=== PATIENT | female | born 1975 | race Caucasian/White ===

== ENCOUNTER 2025-01-21 08:52 | Emergency (ER) | payer OTHER, SELFPAY ==
[2025-01-21] VITALS (10 sets, daily range): BP systolic 123–185; BP diastolic 63–81; PULSE 81–112; RESP 18; TEMP 36.5; O2SAT 92–100; BMI 38.7
--- NOTE | 2025-01-21 09:10 | ED.ABDPAIN ---
HPI - Abdominal Pain General Chief Complaint: Abdominal Pain Stated Complaint: Pain in right back and stomach. Time Seen by Provider: 01/21/25 08:56 History of Present Illness HPI narrative: 49 yo female with hx of atrial fibrillation s/p ablation in 2023, GERD, HLD, chronic back pain, sarcoidosis, high liver numbers, EtOH use (recent binge drinking), here with R flank pain that started at 3am. It woke her from sleep. It waxes and wanes in intensity. She took some hydrocodone at 6am which did not provide much relief. She has never had this pain before. On ROS reports nausea and vomiting x2. No diarrhea. LBM was yesterday. No dysuria, frequency or hematuria. No history of kidney stones. No chest pain. She is s/p hysterectomy. She is prescribed Eliquis and Diltiazem, gabapentin, duloxetine. Related Data Allergies Allergy/AdvReac Type Severity Reaction Status Date / Time cephalexin Allergy Unknown Verified 01/21/25 09:06 ibuprofen (From Motrin) Allergy Unknown Verified 01/21/25 09:06 Penicillins Allergy Unknown Verified 01/21/25 09:06 Review of Systems Review of Systems Narrative: Pertinent ROS obtained and negative except as stated in HPI Patient History Social History Smoking Status: Never smoker Exam Narrative Exam Narrative: Constitutional: 49-year-old female resting on the bed, eyes are closed, appears uncomfortable Head: NCAT Cardiovascular: RRR, no murmur or rub Pulmonary: CTA bilaterally, no respiratory distress Abdominal: soft, pt does not react with palpation but endorses tenderness in all quadrants, maximally epigastric & right upper quadrant, negative Alves sign, no CVA tenderness Extremities: No LE edema Skin: warm and dry, no diaphoresis Neurological: Alert and oriented x3 Initial Vital Signs Initial Vital Signs: Vital Signs Pulse Rate 81 01/21/25 09:03 Blood Pressure 185/81 H 01/21/25 09:03 Pulse Oximetry 95 01/21/25 09:03 Course Orders Ordered: Discontinued Medications Hydrocodone Bitart/Acetaminophen (Hydrocodone/Acet 5/325 Tablet) 1 tab PO NOW ONE Stop: 01/21/25 12:01 Last Admin: 01/21/25 12:16 Dose: 1 tab Documented By: SBF Diphenhydramine HCl (Diphenhydramine 50 Mg/Ml Vial) 25 mg IV NOW ONE Stop: 01/21/25 09:34 Last Admin: 01/21/25 12:22 Dose: Not Given Documented By: SBF Morphine Sulfate (Morphine 4 Mg/Ml Inj) 4 mg IV Q2H PRN PRN Reason: pain Last Admin: 01/21/25 09:15 Dose: 4 mg Documented By: SBF Ondansetron HCl (Ondansetron 4 Mg/2 Ml Inj) 4 mg IV Q2HR PRN PRN Reason: Nausea And Vomiting Vital Signs Vital signs: Vital Signs - 8 hr 01/21/25 09:03 01/21/25 09:03 01/21/25 09:06 Temperature 97.7 F Pulse Rate 81 84 Respiratory Rate 18 Blood Pressure 185/81 H 185/81 H Pulse Oximetry 95 95 Oxygen Delivery Method Room Air 01/21/25 09:30 01/21/25 09:36 01/21/25 09:36 Temperature Pulse Rate 85 91 H Respiratory Rate Blood Pressure 138/63 Pulse Oximetry 97 98 Oxygen Delivery Method 01/21/25 10:00 01/21/25 10:30 Temperature Pulse Rate 92 H 92 H Respiratory Rate Blood Pressure Pulse Oximetry 95 92 Oxygen Delivery Method MDM - Abdominal Pain Lab Data 01/21/25 09:37 01/21/25 09:37 Labs: Lab Results 01/21/25 01/21/25 Range/Units 09:09 09:37 WBC 11.2 H (4.5-11.0) X10^3/uL RBC 4.96 (4.0-5.2) X10^6/uL Hgb 13.5 (12.0-16.0) g/dL Hct 41.5 (36-46) % MCV 83.8 (80-100) fL MCH 27.3 (26-34) PG MCHC 32.5 (30-36) % RDW 14.0 (11.6-14.8) % Plt Count 290 (150-400) X10^3/uL Neut % (Auto) 91.9 H (50-75) % Lymph % (Auto) 5.3 L (25-40) % [place] % (Auto) 2.2 L (3-14) % Eos % (Auto) 0.1 L (2-4) % Baso % (Auto) 0.5 (0-2) % Neut # (Auto) 85647 H (5863-1596) /uL Lymph # (Auto) 600 L (1695-0644) /uL [place] # (Auto) 200 (0-900) /uL Eos # (Auto) 0 (0-450) /uL Baso # (Auto) 100 (0-100) /uL Sodium 137 (137-145) mmol/L Potassium 4.4 (3.4-5.1) mmol/L Chloride 102 (98-107) mmol/L Carbon Dioxide 26 (22-32) mmol/L BUN 21 H (7-17) mg/dL Creatinine 0.98 (0.52-1.04) mg/dL Estimated GFR > 60 (>60) mL/min BUN/Creatinine Ratio 21.4 (6-22) Glucose 148 H (70-99) mg/dL Calcium 9.0 (8.4-10.2) mg/dL Total Bilirubin 0.3 (0.2-1.3) mg/dL AST 30 (14-36) IU/L ALT 33 (<35) IU/L Alkaline Phosphatase 174 H (38-126) U/L Troponin I < 0.012 (0.01-0.034) ng/mL Total Protein 8.2 (6.3-8.2) g/dL Albumin 4.6 (3.5-5.0) g/dL Globulin 3.6 (1.7-4.1) g/dL Albumin/Globulin Ratio 1.3 (1.0-2.8) Lipase 47 (23-300) U/L Urine Color Yellow Urine Appearance Sl cloudy Urine pH 7.5 (4.5-8.0) Ur Specific [place] 1.020 (1.000-1.035) Urine Protein 2+ H (Negative) Urine Glucose (UA) Negative (Negative) g/dL Urine Ketones Negative (NEGATIVE) Urine Occult Blood 1+ H (Negative) Urine Nitrate Negative (Negative) Urine Bilirubin Negative (NEGATIVE) Urine Urobilinogen 1.0 (0.2) E.U./dL Ur Leukocyte Esterase Negative (NEGATIVE) Urine RBC 0-1/hpf (0-5/HPF) Urine WBC None seen (0-5/HPF) Ur Squamous Epith Cells 5-10 /hpf H (0-5/HPF) Urine Bacteria None seen (None) Ur Culture Indicated? Cult not indicated Vol Urine Centrifuged Low vol <10ml unspun A MDM Narrative Medical decision making narrative: In brief, this is a 49-year-old female with history of atrial fibrillation on Eliquis, other comorbidities as stated above, here with about 7 hours of abdominal pain and right flank pain. In chart review: No past medical history to review On arrival to the emergency department, the patient appears uncomfortable. No peritoneal signs. She does have diffuse abdominal discomfort maximally in the epigastric and right upper quadrant with a negative Alves's sign. No CVA tenderness. She is hypertensive otherwise normal vital signs Differential diagnoses considered but not limited to: ACS, pancreatitis, biliary colic, less likely acute cholecystitis, also considered ureteral colic, less likely acute pyelonephritis Initial treatment plan includes: IV Zofran and morphine as needed for pain, send urinalysis, laboratories, obtain CT scan abdomen and pelvis. We will also check a single troponin (will be sufficient given pain for >3 hours) and EKG to exclude ACS as cause of upper abdominal discomfort EKG 0931: Normal sinus rhythm rate of 85, normal MO 146, QRS 80, QTC prolonged 530, no ST segment elevation or depression Laboratories pertinent for: High normal WBC 11.2, normal electrolytes, borderline elevated BUN normal creatinine 0.98, normal glucose, alk-phos 174, nonelevated troponin, urinalysis no overt infection although there is occult blood, normal lipase Imaging pertinent for: CT findings show potentially recent passage of stone from the right ureter into the bladder. There is a 4 mm stone in the midline at the base of the bladder. Per radiology consider ureteritis and subtle changes of pyelonephritis. There is punctate nonobstructing right renal stone and remote hysterectomy, physiologic left adnexal cyst, splenic lesions likely benign per Radiology statistically, and fat containing paraesophageal hernia On reassessment at 1158 the patient is feeling better. She does have a little bit of pain although not as severe as earlier. Did offer some Toradol. We discussed CT findings as well as incidental findings. She is encouraged to follow up with family doctor. 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 Return precautions discussed and provided prior to discharge Pertinent scoring tools used to guide clinical decision making, if applicable: Discharge Plan Departure Patient Disposition: Home Clinical Impression: Calculus, ureteral, Lesion of spleen, Pelvic cyst Instructions: DI for Kidney Stones Activity Restrictions/Additional Instructions: CT scan today showed that you had a 4 mm stone that seems to have recently passed through the right ureter. It is currently in the bladder and I would expect causing little to no pain over the next 24 hours. Incidentally there were also findings of splenic lesions, likely benign, and a left adnexal or pelvic cyst, likely physiologic. I would like you to follow up with your family doctor regarding these findings and your ED visit today. Please return to the emergency room if you feel that your symptoms are worsening or new symptoms develop such as fever, vomiting not able to keep fluids down, worsening pain or other symptoms that are concerning to you Stand Alone Forms: Patient Portal/API
[2025-01-21] MEDS: MORPHINE 4 MG/ML INJ IV (09:15)
[2025-01-21 09:16] LABS: Appearance Urine UA SL CLOUDY; Bilirubin Urine UA NEGATIVE (NEGATIVE); Color Urine UA YELLOW; Glucose Urine UA NEGATIVE (Negative); Ketones Urine UA NEGATIVE (NEGATIVE); Leukocyte Esterase Urine UA NEGATIVE (NEGATIVE); Nitrite Urine UA NEGATIVE (Negative); Occult Blood Urine UA 1+ (Negative); Protein Urine UA 2+ (Negative); Specific Gravity Urine UA 1.020 (1.000-1.035); Urobilinogen Urine UA 1.0 E.U./dL (0.2); pH Urine UA 7.5 (4.5-8.0)
[2025-01-21 09:17] LABS: Culture Indicated Urine Cult Not Indicated
--- NOTE | 2025-01-21 09:17 | DI.CT.S_ITS ---
PROCEDURE: CT ABDOMEN PELVIS W CON INDICATIONS: ruq pain/ r flank pain ?stone, pancreatiits, cholecystitis TECHNIQUE: After the administration of intravenous contrast, axial sections acquired from the lung bases to the pubic symphysis. Coronal and sagittal reformats were performed. For radiation dose reduction, the following was used: automated exposure control, adjustment of mA and/or kV according to patient size. COMPARISON: None. FINDINGS: Image quality: Diagnostic. Lower Chest: Fat containing para esophageal hernia. Heart size is within normal limits. Lung bases are clear. ABDOMEN: Liver: No solid mass. Gallbladder: No radiopaque gallstones or wall thickening. Biliary ducts: No biliary dilation. Pancreas: No ductal dilation. Spleen: Mild splenomegaly with increased AP diameter of approximately 14.5 cm. There are numerable ill-defined low-density lesions in the spleen, which are typically benign findings. Adrenal Glands: No adrenal nodules. Kidneys and Ureters: The right ureter is dilated with inflammatory change in the subjacent fat and mild wall enhancement. There is mild right hydronephrosis and a subtly delayed right nephrogram. There is a punctate nonobstructing right renal stone. No right ureteral stone is identified. There is a central base of the bladder stone measuring approximately 4 mm. There is no stone at the UVJ. Stomach and Bowel: Normal colonic caliber, without significant wall thickening. Peritoneum: No abnormal intraperitoneal fluid. No free air. Ventral Wall: No significant ventral hernia. Abdominal Nodes: No retroperitoneal or mesenteric adenopathy by size criteria. Vessels: Aorta and inferior vena cava are normal in size. PELVIS: Pelvic Organs: Uterus is surgically absent. Incidental 3.0 cm left adnexal cyst, likely a physiologic cyst. Bladder: 4 mm midline base of bladder stone. No bladder wall thickening. Pelvic Nodes: No enlarged lymph nodes. Miscellaneous: No inguinal hernias are seen. Bones: No aggressive osseous abnormality. IMPRESSION: 1. Findings may potentially represent recent passage of a stone from the right ureter into the bladder. There is a 4 mm stone in the midline at the base of the bladder. Alternatively, findings may be unrelated to recent passage of a bladder stone. Consider ureteritis and subtle changes of pyelonephritis. Recommend correlation with urine studies and history and physical examination. 2. Punctate nonobstructing right renal stone. 3. Remote hysterectomy. 4. Likely physiologic left adnexal cyst. 5. Mild splenomegaly. Innumerable ill-defined low-density lesions in the spleen are noted. Statistically, these lesions are commonly benign. However, correlation with previous imaging studies may be helpful. 6. Fat containing paraesophageal hernia. Dictated by: Jose Jonas M.D. on 01/21/2025 at 9:50 Approved by: Jose Jonas M.D. on 01/21/2025 at 9:59
--- NOTE | 2025-01-21 09:19 | EKG_ITS ---
[address] [address] Test Date: 2025-01-21 Pat Name: Jennifer Boyd Department: [facility] Room: Gender: Female Patient Case Coordinator: [facility] [place] : 1975 Requested By: Order Number: [id number] Reading MD: Les Shoemaker Measurements Intervals [place] Rate: 85 P: 61 ID: [id number] QRS: 27 QRSD: 80 T: 17 QT: 446 QTc: 530 Interpretive Statements Normal sinus rhythm Prolonged QT Electronically Signed On 01-21-2025 15:07:10 PST by Les Shoemaker
[2025-01-21 09:44] LABS: Add Manual Diff / Slide Review NO; Hematocrit 41.5 % (36-46); Hemoglobin 13.5 g/dL (12.0-16.0); Lymphocytes Absolute Auto 600 /uL (1100-4500); Mean Corpuscular HGB Conc 32.5 % (30-36); Mean Corpuscular Hemoglobin 27.3 PG (26-34); Mean Corpuscular Volume 83.8 fL (80-100); Platelet Count 290 X10^3/uL (150-400)
[2025-01-21 09:55] LABS: Alanine Aminotransferase 33 IU/L (<35); Albumin 4.6 g/dL (3.5-5.0); Albumin Globulin Ratio 1.3 (1.0-2.8); Alkaline Phosphatase 174 U/L (38-126); Blood Urea Nitrogen 21 mg/dL (7-17); Calcium 9.0 mg/dL (8.4-10.2); Carbon Dioxide 26 mmol/L (22-32); Chloride 102 mmol/L (98-107); Estimated Glomerular Filt Rate > 60 mL/min (>60); Globulin 3.6 g/dL (1.7-4.1); Glucose 148 mg/dL (70-99); HEMOLYSIS < 15 (0-50); Lipase 47 U/L (23-300); Potassium 4.4 mmol/L (3.4-5.1); Sodium 137 mmol/L (137-145); Total Protein 8.2 g/dL (6.3-8.2)
[2025-01-21 10:07] LABS: Troponin I < 0.012 ng/mL (0.01-0.034)
== END 2025-01-21 12:24 | disposition home or self-care (01) ==
PROVIDERS: Emergency Provider Student in an Organized Health Care Education/Training Program
DX: N13.2 Hydronephrosis with renal and ureteral calculous obstruction (principal); D73.89 Other diseases of spleen; N94.89 Other specified conditions associated with female genital organs and menstrual cycle; Z86.79 Personal history of other diseases of the circulatory system
CPT/HCPCS: 36415; 74177; 80053; 81001; 83690; 84484; 85025; 93005; 96374; 99284; J2272; J2405